=== PATIENT | male | born 1995 | race Caucasian/White ===

== ENCOUNTER 2017-04-30 18:58 | Observation (INO) | payer MEDICAID, OTHER ==
[~2017-04-30] VITALS: Ht 185.4 cm; Wt 71.0 kg
[2017-04-30] MEDS ORDERED: ZIPRASIDONE 20 MG INJ IM ONE ×2 (19:13→19:30)
[2017-04-30] MEDS ORDERED: LORazepam 2 MG/ML, 1ML ONE (19:14)
[2017-04-30 19:28] LABS: HEMATOCRIT 45.3 % (39.2-51.8); HEMOGLOBIN 15.6 g/dL (13.7-18.0); WHITE BLOOD COUNT 8.6 x10^3/uL (3.4-10)
[2017-04-30] MEDS ORDERED: PLEASE ENTER ALLERGIES MC SCH ×2 (19:30)
[2017-04-30] MEDS ORDERED: PLEASE ENTER HEIGHT AND WEIGHT MC SCH (19:30)
[2017-04-30] MEDS ORDERED: LORazepam 2 MG/ML, 1ML IM ONE (19:30)
[2017-04-30 19:35] LABS: BLOOD UREA NITROGEN 23 mg/dL (7-18)
[2017-04-30 19:39] LABS: ACETAMINOPHEN < 2 mcg/mL (10-30)
[2017-04-30] MEDS ORDERED: ONDANSETRON ODT 4 MG PO PRN (21:00)
[2017-04-30] MEDS ORDERED: DIPHENHYDRAMINE 50 MG CAPSULE PO PRN (21:00)
[2017-04-30] MEDS ORDERED: BISACODYL 10 MG SUPP PR PRN (21:00)
[2017-04-30] MEDS ORDERED: POLYETHYLENE GLYCOL 17 GM PACKET PO PRN (21:00)
[2017-04-30] MEDS ORDERED: ACETAMINOPHEN 325 MG TABLET PO PRN (21:00)
[2017-04-30 22:24] LABS: DAU SCREEN DISCLAIMER
[2017-04-30 23:03] VITALS: BP 100/60
[2017-05-01 00:45] VITALS: BP 98/51
[2017-05-01 02:51] VITALS: BP 93/53
[2017-05-01 04:02] VITALS: BP 122/69
[2017-05-01 07:24] VITALS: BP 119/66
[2017-05-01] MEDS: LORazepam 1MG TABLET PO PRN ×3 (07:36→22:35)
[2017-05-01] MEDS: ZIPRASIDONE 20MG CAPSULE PO PRN ×2 (07:36→15:48)
[2017-05-01] MEDS: SENNA/DOCUSATE TABLET PO SCH (08:09)
[2017-05-01 19:16] VITALS: BP 110/73
[2017-05-01] MEDS: NICOTINE 21 MG/24 HR PATCH.TD24 TD SCH (21:13)
[2017-05-02] MEDS: ZIPRASIDONE 20MG CAPSULE PO PRN (07:14)
[2017-05-02] MEDS: LORazepam 1MG TABLET PO PRN ×2 (07:15→21:08)
[2017-05-02] MEDS: SENNA/DOCUSATE TABLET PO SCH (07:24)
[2017-05-02 08:00] VITALS: BP 126/89
[2017-05-02 19:38] VITALS: BP 135/94
[2017-05-02] MEDS: NICOTINE 21 MG/24 HR PATCH.TD24 TD SCH (21:08)
[2017-05-03] MEDS: LORazepam 1MG TABLET PO PRN (00:40)
[2017-05-03] MEDS: ZIPRASIDONE 20MG CAPSULE PO PRN (00:41)
[2017-05-03 07:57] VITALS: BP 105/69
[2017-05-03] MEDS: SENNA/DOCUSATE TABLET PO SCH (09:00)
[2017-05-03] MEDS: NICOTINE 21 MG/24 HR PATCH.TD24 TD SCH (09:00)
[2017-05-03 19:31] VITALS: BP 111/77
[2017-05-04] MEDS: ZIPRASIDONE 20MG CAPSULE PO PRN (03:55)
[2017-05-04 07:51] VITALS: BP 116/78
[2017-05-04] MEDS: SENNA/DOCUSATE TABLET PO SCH (08:09)
[2017-05-04] MEDS: NICOTINE 21 MG/24 HR PATCH.TD24 TD SCH (08:10)
== END 2017-05-04 11:23 | disposition home or self-care (01) ==
LOC: ED 20:19 → EDIP 20:24 → ED 20:32 → 2N 22:37
PROVIDERS: ADMIT Surgery; ATTEND Family Medicine
DX: F23 Brief psychotic disorder (principal); F41.9 Anxiety disorder, unspecified; R44.3 Hallucinations, unspecified; F22 Delusional disorders; Z72.0 Tobacco use
CPT/HCPCS: 36415; 80048; 80307; 80329; 82040; 84443; 85025; 93005; 96372; 99285; G0378; J2060; J3486; G0479; G0480